=== PATIENT | female | born 1980 | race Asian ===

== ENCOUNTER → 2023-10-17 09:57 | Outpatient (REF) | payer BC, SELFPAY ==
[2023-10-17 12:04] LABS: % Basophils 0.4 % (0-2); % Eosinophils 2.2 % (0-6); % Immature Granulocytes 0.2 % (0-0.5); % Lymphocytes 26.9 % (20.5-51.1); % Monocytes 7.7 % (1.7-9.3); % Neutrophils 62.6 % (42.2-75.2); Absolute Eosinophils 0.1 10^3/uL (0-0.7); Absolute Lymphocytes 1.2 10^3/uL (1.2-3.4); Absolute Monocytes 0.4 10^3/uL (0.1-0.6); Absolute Neutrophils 2.9 10^3/uL (1.4-6.5); Hematocrit 36.9 % (37.0-47.0); Hemoglobin 12.5 g/dL (12.0-16.0); Mean Corp Hgb Conc. 33.9 g/dL (33.0-37.0); Mean Corpuscular Hgb 30.5 pg (27.0-31.0); Mean Platelet Volume 9.8 fL (7.4-10.4); Nucleated Red Blood Cells % 0 %; Platelet Count 223 10^3/uL (130-400); Red Cell Dist. Width 12.5 % (11.5-14.5); White Blood Cell Count 4.6 10^3/uL (4.8-10.8)
[2023-10-17 12:10] LABS: Urine Albumin Negative (Neg - Trace); Urine Bilirubin Negative (Negative); Urine Character Clear (Clear); Urine Color Yellow; Urine Glucose Negative (Negative); Urine Ketone Negative (Negative); Urine Leukocyte 1+ (Negative); Urine Nitrite Negative (Negative); Urine Occult Blood Trace (Negative); Urine Specific Gravity 1.015 (<1.030); Urine Urobilinogen Negative (Neg - 1+); Urine pH 6.5 (5.0-9.0)
[2023-10-17 12:20] LABS: Urine Bacteria Moderate (Negative); Urine Mucus Many; Urine Red Blood Cell 0-2 /HPF (0-2); Urine Squamous Cell 21-25 /LPF (Few); Urine White Cell 16-20 /HPF (0-5)
[2023-10-17 12:37] LABS: Glycohemoglobin (HgbA1c) 5.4 % (4.0-5.6)
[2023-10-17 14:22] LABS: Hepatitis B Surface Antigen Negative (Negative)
[2023-10-17 19:35] LABS: Hepatitis C Antibody Negative (Negative)
[2023-10-17 20:53] LABS: Rubella Positive
[2023-10-18 12:28] LABS: HIV Combo Negative (Negative)
[2023-10-18 15:35] LABS: Syphilis/T. pallidum Ab Reflex Negative (Negative)
== END ==
LOC: HWLAB 09:57
PROVIDERS: ATTENDING PHYSICIAN Obstetrics & Gynecology; FAMILY PHYSICIAN Internal Medicine
DX: Z34.90 Encounter for supervision of normal pregnancy, unspecified, unspecified trimester (principal)
CPT/HCPCS: 36415; 80055; 81003; 81015; 83036; 84702; 86803; 86850; 86900; 86901; 87086; 87389

== ENCOUNTER → 2023-11-21 12:47 | Outpatient (REF) | payer BC, SELFPAY | LOC: RAD 12:47 | PROVIDERS: ATTENDING PHYSICIAN Obstetrics & Gynecology; FAMILY PHYSICIAN Internal Medicine | DX: O26.851 Spotting complicating pregnancy, first trimester (principal) | CPT/HCPCS: 76801; 76817 ==

== ENCOUNTER → 2023-11-29 10:05 | Outpatient (REF) | payer BC, SELFPAY ==
[2023-11-29 13:53] LABS: Beta HCG Quantitative 358.08 mIU/ml
== END ==
LOC: HWLAB 10:05
PROVIDERS: ATTENDING PHYSICIAN Obstetrics & Gynecology; FAMILY PHYSICIAN Internal Medicine
DX: O03.4 Incomplete spontaneous abortion without complication (principal)
CPT/HCPCS: 36415; 84702

== ENCOUNTER → 2024-08-03 10:03 | Outpatient (REF) | payer BC, SELFPAY ==
[2024-08-03 12:00] LABS: % Basophils 1.2 % (0-2); % Eosinophils 5.5 % (0-6); % Immature Granulocytes 0.3 % (0-0.5); % Lymphocytes 36.6 % (20.5-51.1); % Monocytes 8.7 % (1.7-9.3); % Neutrophils 47.7 % (42.2-75.2); Absolute Eosinophils 0.2 10^3/uL (0-0.7); Absolute Lymphocytes 1.3 10^3/uL (1.2-3.4); Absolute Monocytes 0.3 10^3/uL (0.1-0.6); Absolute Neutrophils 1.6 10^3/uL (1.4-6.5); Hematocrit 40.1 % (37.0-47.0); Mean Corp Hgb Conc. 32.4 g/dL (33.0-37.0); Mean Corpuscular Hgb 30.6 pg (27.0-31.0); Mean Corpuscular Volume 94.4 fL (81.0-99.0); Mean Platelet Volume 9.5 fL (7.4-10.4); Nucleated Red Blood Cells % 0 %; Platelet Count 231 10^3/uL (130-400); Red Blood Cell Count 4.25 10^6/uL (4.20-5.40); Red Cell Dist. Width 12.4 % (11.5-14.5); White Blood Cell Count 3.4 10^3/uL (4.8-10.8)
[2024-08-03 12:12] LABS: ALT (SGPT) 15 U/L (0-35); AST (SGOT) 21 U/L (14-36); Albumin 4.2 g/dl (3.5-5.0); Alkaline Phosphatase 42 U/L (38-126); Blood Urea Nitrogen 15 mg/dl (7-17); Calcium 8.8 mg/dl (8.4-10.2); Carbon Dioxide 27 mmol/L (22-30); Chloride 106 mmol/L (98-107); Glucose 87 mg/dl (70-99); HDL Cholesterol 56 mg/dl; LDL Cholesterol, Calculated 105 mg/dl; Potassium 3.9 mmol/L (3.5-5.1); Sodium 139 mmol/L (135-145); Total Bilirubin 0.5 mg/dl (0.2-1.3); Total Cholesterol 179 mg/dl (50-199); Triglyceride 90 mg/dl (10-149); Very Low Density Lipoprotein 18 mg/dl (0-30); eGFR > 60.00
[2024-08-03 12:16] LABS: Urine Albumin Negative (Neg - Trace); Urine Bilirubin Negative (Negative); Urine Color Yellow; Urine Glucose Negative (Negative); Urine Ketone Negative (Negative); Urine Leukocyte Trace (Negative); Urine Nitrite Negative (Negative); Urine Occult Blood 1+ (Negative); Urine Specific Gravity 1.025 (<1.030); Urine Urobilinogen Negative (Neg - 1+)
[2024-08-03 12:18] LABS: Urine Character Very Cloudy (Clear)
[2024-08-03 12:28] LABS: Free T4 1.09 ng/dl (0.78-2.19); Luteinizing Hormone 3.95 mIU/ml
[2024-08-03 12:42] LABS: TSH 2.51 uIU/ml (0.47-4.68)
[2024-08-03 13:07] LABS: Urine Red Blood Cell 0-2 /HPF (0-2); Urine Squamous Cell >30 /LPF (Few); Urine White Cell None Seen /HPF (0-5)
[2024-08-03 13:56] LABS: Glycohemoglobin (HgbA1c) 5.2 % (4.0-5.6)
[2024-08-03 19:17] LABS: FSH 5.2 mIU/ml
== END ==
LOC: HWRAD 10:03
PROVIDERS: ATTENDING PHYSICIAN Internal Medicine
DX: R76.11 Nonspecific reaction to tuberculin skin test without active tuberculosis (principal); Z31.9 Encounter for procreative management, unspecified; Z83.3 Family history of diabetes mellitus; M54.50 Low back pain, unspecified
CPT/HCPCS: 36415; 72110; 80053; 80061; 81003; 81015; 83001; 83002; 83036; 84439; 84443; 85025

== ENCOUNTER → 2024-09-03 09:52 | Outpatient (REF) | payer BC, SELFPAY | LOC: HWWDC 09:52 | PROVIDERS: ATTENDING PHYSICIAN Internal Medicine | DX: Z12.31 Encounter for screening mammogram for malignant neoplasm of breast (principal); Z90.10 Acquired absence of unspecified breast and nipple; Z85.3 Personal history of malignant neoplasm of breast | CPT/HCPCS: 77063; 77067 ==